=== PATIENT | female | born 1965 | race Caucasian/White ===

== ENCOUNTER 2016-09-25 21:15 | Inpatient (IN) | payer OTHER ==
--- NOTE | ~2016-09-25 | CR63 ---
[facility] A Service of [facility] & [facility] RADIOLOGY TEXT RESULTS PATIENT: SHERIDAN EISENBERG LOCATION: [facility] 569-01 : [birth year] UNIT #: [id number] AGE: [address]: Leonel Fuller MD SEX: F ORDER DR: [id number] [facility] [address] [facility] [place], [place] [address] [id number] I MR#: [id number] Acc #: [id number] NAME: SHERIDAN EISENBERG : 1965 SEX: F STUDY DATE/TIME: 09/29/2016 13:45 UNIT: [facility] ROOM: [facility] STUDY DESCRIPTION: CR Chest 2 View Attending Physician: Leonel Fuller M.D. Ordering Physician: Trevin Andrea M.D. Primary Care Physician: No Primary Care Physician MEDICAL IMAGING REPORT This report is preliminary unless electronic signature is present EXAM Chest, PA and lateral, 09/29. COMPARISON 09/28 FINDINGS PA and lateral views are obtained. Heart size is enlarged. Vascular pattern is normal. Right IJ line terminates in the SVC and transvenous pacemaker is unchanged on the lateral view, there is some atelectasis in the bases posteriorly. CONCLUSION 1. Postop changes of prior transvenous pacemaker placement. Stable cardiomegaly with atelectasis in the bases. Dictated by... Jason Maynard M.D. THIS IS AN ELECTRONICALLY VERIFIED REPORT Jason Maynard M.D. at 09/30/2016 9:17 AM ELEONORA/jesse TD: 09/29/2016 19:57 JOB #: [id number] MEDICAL IMAGING REPORT Page 1 of 1 COPY
--- NOTE | ~2016-09-25 | EKG ---
PATIENT: SHERIDAN EISENBERG UNIT #: [id number] Ventricular Rate: 80 BPM Atrial Rate: 69 BPM QRS Duration: 142 ms Q-T Interval: 522 ms QTC Calculation(Bezet): 602 ms Calculated R Polk: -72 degrees Calculated T Polk: 100 degrees Diagnosis Line: Electronic ventricular pacemaker Diagnosis Line: When compared with ECG of 25-SEP-2016 21:11, Diagnosis Line: (unconfirmed) Diagnosis Line: Premature ventricular complexes are no longer Diagnosis Line: Present Diagnosis Line: Vent. rate has decreased BY 13 BPM Diagnosis Line: Confirmed by DHEERAJ FRANCE MD ([id number]) on 09/27/2016 Diagnosis Line: 6:47:05 PM INTERPRETING MD: EDILMA FARIAS
--- NOTE | ~2016-09-25 | CT16 ---
[facility] A Service of [facility] & [facility] RADIOLOGY TEXT RESULTS PATIENT: SHERIDAN EISENBERG LOCATION: [address] : [birth year] UNIT #: [id number] AGE: [address]: Chuck Villanueva MD SEX: F ORDER DR: [id number] [facility] [address] [facility]. [place], [place] [address] [id number] I MR#: [id number] Acc #: [id number] NAME: SHERIDAN EISENBERG : 1965 SEX: F STUDY DATE/TIME: 09/25/2016 22:44 UNIT: [facility] ROOM: [facility] STUDY DESCRIPTION: CT Angio Chest for PE Attending Physician: Chuck Villanueva M.D. Ordering Physician: Izzy Crews M.D. Primary Care Physician: Primary Care Physician No MEDICAL IMAGING REPORT This report is preliminary unless electronic signature is present EXAM CT chest with contrast, pulmonary arteriography protocol, 09/25/2016 HISTORY 51-year-old female in the ED intubated after respiratory arrest. Shortness of air and abdomen pain today. TECHNIQUE CT examination of the Chest was performed with IV contrast using pulmonary arteriography protocol with multiplanar reconstructed images of the pulmonary arteries. This CT exam was performed with one or more of the following radiation dose reduction techniques: automatic exposure control, adjustment of mA and/or kV according to patient size, and iterative reconstruction. FINDINGS The examination is limited for the assessment of pulmonary embolism due to poor contrast opacification of medium and smaller pulmonary arteries within the mid and peripheral lung zones. No large pulmonary embolism is present within the main pulmonary arteries, and no PE is visible within large central pulmonary arteries. Normal-caliber thoracic aorta. Moderate cardiomegaly. No pericardial effusion. Lung images show likely mild interstitial edema in the perihilar regions and lower lobes, but the nondependent portions of both lungs are clear. There is atelectasis in the dependent posterior costophrenic angles, greater on the right, but there is no pericardial effusion. Endotracheal tube tip is just above the santino. NG tube in the stomach. Possible interruption of the left ventricular lead of the patient's biventricular cardiac pacer/AICD questioned on earlier radiographs is not clearly seen on this study. [facility] A Service of [facility] & [facility] RADIOLOGY TEXT RESULTS PATIENT: SHERIDAN EISENBERG LOCATION: [address] : [birth year] UNIT #: [id number] AGE: [address]: Chuck Villanueva MD SEX: F ORDER DR: IMPRESSION 1. No large central pulmonary embolism is visible. Medium and smaller pulmonary arteries are not assessed due to technical limitations noted above. 2. Probable mild interstitial edema in the lower lungs. Nondependent lungs clear. Bibasilar atelectasis. 3. Cardiomegaly. No pericardial effusion. Normal-caliber thoracic aorta. Dictated by... Marcus Gomes M.D. THIS IS AN ELECTRONICALLY VERIFIED REPORT Marcus Gomes M.D. at 09/26/2016 5:51 AM AUTUMN/kira TD: 09/26/2016 02:32 JOB #: [id number] MEDICAL IMAGING REPORT Page 1 of 1 COPY
--- NOTE | ~2016-09-25 | CR63 ---
[facility] A Service of [facility] RADIOLOGY TEXT RESULTS PATIENT: SHERIDAN EISENBERG LOCATION: [facility] 5612-21 : [birth year] UNIT #: [id number] AGE: [address]: Leonel Fuller MD SEX: F ORDER DR: [id number] [facility] [address] [facility]. [place], [place] [address] [id number] I MR#: [id number] Acc #: [id number] NAME: SHERIDAN EISENBERG : 1965 SEX: F STUDY DATE/TIME: 09/28/2016 8:02 UNIT: [facility] ROOM: [facility] STUDY DESCRIPTION: CR Chest 2 View Attending Physician: Leonel Fuller M.D. Ordering Physician: Trevin Andrea M.D. Primary Care Physician: No Primary Care Physician MEDICAL IMAGING REPORT This report is preliminary unless electronic signature is present EXAM Chest, 09/28/2016, 0802 hours. HISTORY 51-year-old female status post extubation. COMPARISON Portable chest, 09/27/2016. FINDINGS Two-view chest demonstrates cardiomegaly. Large body habitus results in somewhat restricted inspiration. Central line remains well positioned. Pacing leads well positioned. Improved aeration of the left lower lobe. Mild vascular congestion. Probable atelectasis left lung base with poor penetration of soft tissues over the left lower chest. IMPRESSION Interim extubation with improved aeration of the left lower lobe. Low lung volumes with mild vascular congestion and cardiomegaly. Dictated by... Salo Mccain M.D. THIS IS AN ELECTRONICALLY VERIFIED REPORT Salo Mccain M.D. at 09/28/2016 1:00 PM SARAH/sanchez TD: 09/28/2016 11:27 JOB #: [id number] MEDICAL IMAGING REPORT [facility] A Service of [facility] & [facility] RADIOLOGY TEXT RESULTS PATIENT: SHERIDAN EISENBERG LOCATION: [facility] 569 : [birth year] UNIT #: [id number] AGE: [address]: Leonel Fuller MD SEX: F ORDER DR: Page 1 of 1 COPY
--- NOTE | ~2016-09-25 | A ---
[facility] Nutrition Therapy DATE: 09/26/16 Patient: SHERIDAN Prince SUSHILA Physician: ESTRELLA Address: [address] [place] [address] Room/Bed: [address], Zip: [place] [address] Admit Date: 09/26/16 Date of : [birth year] Height: 5 4 Weight: 277 126 NUTRITIONAL ASSESSMENT: REASON: SEEING PT FOR HIGH BMI, NPO IN ICU DX: 51 Y.O. FEMALE IN ICU FOR ADBOMINAL PAIN, HEART FAILURE PMH: AFIB, CHF, CAD, COPD, AICD, ASCHEMIC CARDIO MYOPATHY, HYPERLIPIDEMIA, CKD Anthropometrics: 5'4", WT: 277 (126 KG), BMI 47 Labs: K+ 3.3, GLU 246, CA++ 8.1, ALB 2.9, AST 103, ALT 101 Meds: PROPOFOL @ 30.2 ML/HR, BMP, NACL, PROTONIX, LOPRESSOR, MAG SULFATE, ZOSYN, NOVOLOG, SYNTHROID (1X DAY, OGT), ZOFRAN I/O & Bowel function: 760/1350, LAST BM 09/25 Skin Integrity: REDNESS L. BREAST, BRUISE BUE/HANDS Estimated Nutrition Needs: 5153-0620 KCAL (11-14 KCAL/KG ABW) 109-136 G PRO (2-2.5 G/KG IBW) FLUIDS CONSISTANT WITH KCALS OR PER MD Assessment: CHART REVIEWED, EVENTS NOTED. PT WAS ADMITTED WITH ABDOMINAL PAIN AT HOME AND POSSIBLE HEART FAILURE REPORTED BY RN. PT HAS EXTENSIVE PMH RELATING TO HEART FAILURE. PT IS SEDATED CURRENTLY ON THE VENTILATOR. PROPOFOL IS PROVIDING AN ADDITIONAL 797 KCALS FROM LIPIDS AT THIS TIME. PER MD NOTE IN CHART, WEAN TO BE ATTEMPTED TOMORROW. PLEASE SEE RECOMMENDATIONS FOR ENTERAL NUTRITION RECOMMENDATIONS. RD WILL CONTINUE TO FOLLOW. Dx: 1) INADEQUATE ORAL INTAKE R/T CLINICAL CONDITION, VENTILATOR DEPENDANCE AEB NPO STATUS. 2) MORBID OBESITY R/T POSSIBLY LIFESTYLE AEB BMI OF 47. Intervention: 1. ENTERAL NUTRITION IF PT NOT EXTUBATED Monitoring, Evaluation and Goals: 1. ENTERAL NUTRITION; INITIATE IF PT NOT EXTUBATED, PROVIDE >80% GOAL VOLUME X 24 HRS 2. WEIGHT; PROMOTE GRADUAL WEIGHT LOSS TOWARD A HEALTHY BMI AND PREVENT ANY ADDITIONAL WEIGHT GAIN 3. LABS; GLU; WNL [facility] Nutrition Therapy DATE: 09/26/16 Patient: SHERIDAN Prince ELGIN Physician: ESTRELLA Address: [address] [place] [address] Room/Bed: [address], Zip: [place] [address] Admit Date: 09/26/16 Date of : 67 Height: 5 4 Weight: 277 126 Recommendations: 1. IF ENTERAL ACCESS IS OBTAINED, INITIATE ENTERAL NUTRITION SUPPORT WITH VITAL HIGH PROTEIN @ 20 ML/HR X 22 HRS + 30 ML PROSTAT BID. INCREASE BY 10 ML Q 6 HRS TO GOAL OF 40 ML/HR X 22 HOURS + 30 ML PROSTAT BID (PT ON SYNTHROID, HOLD TF'S ONE HOUR BEFORE AND ONE HOUR AFTER ADMINISTRATION) -THIS WILL PROVIDE 1877 KCAL, 107 G PRO, 739 ML FREE H20 -ADD FREE H20 FLUSHES PER MD ORDERS 2. WHEN PROPOFOL IS D/C'D, DISCONTINUE PROSTAT AND INCREASE VITAL HP BY 10 ML Q 6 HOURS TO GOAL OF 65 ML/HR X 22 HOURS (PT ON SYNTHROID, HOLD TF'S ONE HOUR BEFORE AND ONE HOUR AFTER ADMINISTRATION) -THIS WILL PROVIDE 1430 KCAL, 125 G PRO, 1201 FREE H20 -ADD FREE H20 FLUSHES PER MD ORDERS 3. IF THE PT IS EXTUBATED AND DEEMED SAFE FOR PO INTAKE, ADVANCE TO A HEALTHY HEART DIET TOLERATED. 3. CHECK HGBA1C D/T ELEVATED BLOOD GLUCOSE LEVELS. RD WILL F/U PER PROTOCOL PT IS MODERATE NUTRITIONAL RISK. Respectfully, SETH MCMANUS, SENIOR SAFETY SUPPORT MANAGER TORIBIO DAWN, RD, LD Food and Nutritional Services [facility] cc: client file cc: client file
--- NOTE | ~2016-09-25 | CR72 ---
[facility] A Service of [facility] RADIOLOGY TEXT RESULTS PATIENT: SHERIDAN EISENBERG LOCATION: [facility] 569-01 : [birth year] UNIT #: [id number] AGE: [address]: Leonel Fuller MD SEX: F ORDER DR: [id number] [facility] [address] [facility]. [place], [place] [address] [id number] I MR#: [id number] Acc #: [id number] NAME: SHERIDAN EISENBERG : 1965 SEX: F STUDY DATE/TIME: 09/27/2016 6:16 UNIT: [facility] ROOM: [facility] STUDY DESCRIPTION: CR Chest Single View Portable Attending Physician: Leonel Fuller M.D. Ordering Physician: Joel Mead M.D. Primary Care Physician: Primary Care Physician No MEDICAL IMAGING REPORT This report is preliminary unless electronic signature is present EXAM Portable chest 09/27/2016 COMPARISON 09/26/2016. HISTORY ET tube placement. Respiratory failure. Admitted 2 days ago. FINDINGS An AP view is obtained. The patient is intubated with ET tube above the santino. Nasoenteric tube is in the stomach. Right IJ line terminates in the SVC. There is a transvenous biventricular pacemaker in place. Heart size is normal. There is atelectasis at the left base. The vascular markings are normal. CONCLUSION 1. ET tube in satisfactory position. 2. Status post biventricular pacemaker placement. 3. Atelectasis at the left base. Dictated by... Jason Maynard M.D. THIS IS AN ELECTRONICALLY VERIFIED REPORT Jason Maynard M.D. at 09/30/2016 9:17 AM ELEONORA/silva TD: 09/27/2016 07:25 JOB #: [id number] MEDICAL IMAGING REPORT [facility] A Service [facility] RADIOLOGY TEXT RESULTS PATIENT: SHERIDAN EISENBERG LOCATION: [facility] 569-01 : [birth year] UNIT #: [id number] AGE: [address]: Leonel Fuller MD SEX: F ORDER DR: Page 1 of 1 COPY
--- NOTE | ~2016-09-25 | CO ---
Unit #: [id number] #: [id number] Patient: SHERIDAN KHAN [id number] [address] [place], [place] [address] [id number] I MR#: [id number] NAME: SHERIDAN KHAN ROOM: [facility] Age: 51 Sex: F Admission Date: 09/26/2016 : 1965 Attending Physician: Leonel Fuller M.D. Primary Care Physician: No Primary Care Physician Consultation Date: 09/26/2016 CONSULTATION REPORT REASON FOR CONSULTATION Respiratory failure, sepsis. HISTORY OF PRESENT ILLNESS A 51-year-old female with multiple medical problems. She has had a several week history of epigastric and chest discomfort after she eats. She has a lot of chronic problems including congestive heart failure, coronary artery disease, COPD with ongoing active tobacco use, chronic constipation likely secondary to pain medications, obstructive sleep apnea intolerant to CPAP. The family's history is somewhat difficult to decipher as they seem to concentrate on all these multiple medical problems. She presented to the emergency room in extremist, required intubation. There was a question of sepsis and she was placed on multiple antibiotics. Multiple imaging studies have been performed which includes a CT scan of the abdomen which was fairly unremarkable. A CT scan of the chest which revealed no PE, no definite pneumonia. She now is in the intensive care unit, hemodynamically stable on the ventilator, sedated with propofol. Obviously, she cannot add to the history. PAST MEDICAL HISTORY Past medical history once again is extensive and is remarkable for: 1. COPD. 2. Ongoing active tobacco use. 3. Obstructive sleep apnea, intolerant to CPAP. 4. Congestive heart failure, last EF that I can see documented is 35%, although I believe today's echo shows worsening of her LV function. 5. Severe mitral regurgitation. 6. Atrial fibrillation. 7. Pacemaker implantation. 8. The family states that she "only has one kidney." Details are unclear. 9. Family also tells me she has cirrhosis, possibly secondary to fatty liver. 10. History of coronary artery disease with stents. 11. History of chronic pain, on narcotics with chronic constipation. 12. History of anemia with diverticulosis and AVMs of the colon. 13. History of diabetes. 14. History of hyperlipidemia. MEDICATIONS Medications at home according to a med/rec sheet: 1. Metoprolol. 2. Shawn aspirin. 3. Zantac. Unit #: [id number] #: [id number] Patient: SHERIDAN KHAN 4. Bumex. 5. Combivent inhaler. 6. Synthroid. 7. Lactulose. 8. Oxycodone 30 mg three times a day. 9. Celexa. 10. Desyrel. ALLERGIES Sulfa, morphine (unknown reactions), ibuprofen. SOCIAL HISTORY She rarely drinks. She continues to smoke. She is intolerant to CPAP. FAMILY HISTORY No definite familial lung disease. REVIEW OF SYSTEMS Unobtainable. PHYSICAL EXAMINATION GENERAL: A 51-year-old obese female, orally intubated. VITAL SIGNS: Afebrile. Pulse 80, respiratory rate 18, blood pressure 117/70. Height 5 foot 4 inches, weight 277, BMI is 49. HEENT: Pupils are equal, round, and reactive to light. Sclerae anicteric. Head atraumatic. NECK: Supple. No supraclavicular or cervical adenopathy appreciated. CHEST: Short expiratory phase. No wheeze, stridor, consolidation. CARDIAC: Examination reveals a regular rhythm, possible soft murmur. No gallop. ABDOMEN: Obese, soft, nontender. No hepatomegaly or rebound. EXTREMITIES: Reveal no clubbing, cyanosis. There is trace to 1+ edema. No calf tenderness. SKIN: She has some chronic skin changes lower extremities. Delayed capillary blush. NEUROLOGIC: She is sedated on propofol but she will move about all fours. According to the nurse, she has increasing agitation to some degree. DIAGNOSTIC STUDIES LABORATORY: Arterial blood gas: Initially pH is 7.11, pCO2 of 68, pO2 of 400. Repeat today: A pH of 7.39, pCO2 of 47, pO2 of 127 on assist control of 18, tidal volume of 500, 60%, 5 of PEEP. She apparently diuresed well in the emergency room. BUN 16, creatinine 1, potassium 3.3 and is being replaced. Transaminases: Elevated AST 103, ALT 101, alkaline phosphatase 112. BNP was 1154, now 588. Lactic acid was 4.3, now 3.1. INR normal, apparently she is on Xarelto. Initial cardiac enzymes negative. White blood cell count was 30, now 21. Hemoglobin 14.4, platelet count 119,000. Tox screen positive for benzodiazepines and opiates. I do not seen benzodiazepines on her med rec sheet. Urinalysis: Glucosuria, proteinuria, 3+ blood, innumerable white cells, 2+ bacteria. Blood cultures performed and are pending. Urine is pending. IMAGING: Chest x-ray yesterday: ET tube in adequate position, somewhat on the low side. CT scan secondary to pulmonary lobule: No definite pneumonia, some bibasilar atelectasis. No PE. Unit #: [id number] #: [id number] Patient: SHERIDAN KHAN CT abdomen: Per report, no acute findings. CARDIOVASCULAR: EKG is paced. IMPRESSION 1. Respiratory failure, secondary to congestive heart failure. 2. Coronary artery disease, rule out myocardial infarction. 3. Possible sepsis, secondary to urinary source. 4. Chronic obstructive pulmonary disease with ongoing active tobacco use. No active bronchospasm. 5. Obstructive sleep apnea, currently intolerant and not treated. 6. History of cirrhosis, per family history suspect secondary to fatty liver. 7. Paroxysmal atrial fibrillation on Eliquis. 8. History of anemia and gastrointestinal bleeding secondary to arteriovenous malformations. 9. Coronary artery disease. 10. Chronic pain with constipation. 11. Elevated liver function tests. 12. Some question of solitary kidney, currently with normal renal function. PLAN 1. Mechanical ventilatory support. 2. Diuresis. 3. Rule out myocardial infarction and cardiology is to see. 4. Antibiotics directed toward a urinary source, followup cultures, adjust as needed. 5. I will add nebulized bronchodilators but at this point, no steroid therapy is needed. 6. Will attempt spontaneous breathing trial in the morning. If fails, will start enteral feeds. 7. Certainly, no smoking is of great benefit. 8. I would consider re-evaluation for sleep apnea if the patient survives this illness. Severity of disease discussed with family. Thank you very much for allowing me to participate in the care of Ms. Khan. Dictated by... Joel Mead M.D. AHMET/jing TD: 09/26/2016 11:50 JOB #: [id number] Unit #: [id number] #: [id number] Patient: SHERIDAN KHAN CONSULTATION REPORT Page 1 of 1 X Joel Mead MD CONSULTATION REPORT
--- NOTE | ~2016-09-25 | CR72 ---
[facility] A Service of [facility] RADIOLOGY TEXT RESULTS PATIENT: SHERIDAN EISENBERG LOCATION: [facility] 569-01 : [birth year] UNIT #: [id number] AGE: [address]: Leonel Fuller MD SEX: F ORDER DR: [id number] [facility] [address] [facility]. [place], [place] [address] [id number] I MR#: [id number] Acc #: [id number] NAME: SHERIDAN EISENBERG : 1965 SEX: F STUDY DATE/TIME: 09/25/2016 21:41 [facility] STUDY DESCRIPTION: CR Chest Single View Portable Attending Physician: Chuck Villanueva M.D. Ordering Physician: Izzy Crews M.D. Primary Care Physician: No Primary Care Physician MEDICAL IMAGING REPORT This report is preliminary unless electronic signature is present EXAM Portable AP view of the chest. COMPARISON March 30, 2015, and January 08, 2015. INDICATIONS 51-year-old female with respiratory arrest today post endotracheal intubation. FINDINGS Endotracheal tube appears slightly low-riding located approximately 2.3 cm above the santino. Multilead left chest pacemaker/defibrillator device appears stable. No evidence of pneumothorax. Cardiomegaly again noted. There are increased interstitial opacities throughout the lungs perhaps reflecting interstitial edema. Correlation to exclude signs of pneumonia recommended. Hazy attenuation over the left lung base is favored to be due to prominent breast and cardiac shadows. There is focal kinking of one of the cardiac leads which was seen in December of 2014 but not appears more prominent. Correlation with device function is recommended. IMPRESSION 1. Questionable focal kinking of a single lead in this patient with multilead pacemaker/defibrillator device. While this was seen in December of 2014, it now appears more prominent and correlation with device function is recommended. 2. Endotracheal tube is located approximately 2.3 cm above the santino. One could consider retraction by approximately a centimeter as the tube tip is just above the origin of the right mainstem bronchus. 3. There is cardiomegaly with increased interstitial opacities throughout the lungs favoring mild pulmonary interstitial edema. Correlation to exclude signs of pneumonia are recommended. [facility] A Service of [facility] RADIOLOGY TEXT RESULTS PATIENT: SHERIDAN EISENBERG LOCATION: [facility] 569-01 : [birth year] UNIT #: [id number] AGE: [address]: Leonel Fuller MD SEX: F ORDER DR: Dictated by... Dov Benoit M.D. THIS IS AN ELECTRONICALLY VERIFIED REPORT Dov Benoit M.D. at 10/01/2016 7:28 AM DOMINIQUE/jesse TD: 09/26/2016 01:55 JOB #: [id number] MEDICAL IMAGING REPORT Page 1 of 1 COPY
--- NOTE | ~2016-09-25 | DS ---
Unit #: [id number] #: [id number] Patient: SHERIDAN EISENBERG [id number] [address] [place], [place] [address] [id number] I MR#: [id number] NAME: SHERIDAN EISENBERG ROOM: 569 Age: 51 Sex: F Admission Date: 09/25/2016 : 1965 Discharge Date: 09/29/2016 Attending Physician: Leonel Fuller M.D. Primary Care Physician: No Primary Care Physician DISCHARGE SUMMARY REASON FOR ADMISSION Acute hypoxic respiratory failure. HISTORY OF PRESENT ILLNESS/HOSPITAL COURSE Patient is a 51-year-old female. Please refer to H and P for complete details on initial part of hospital stay. She was admitted secondary to above. She was subsequently intubated and placed on ventilator and placed in the ICU. Consultation was placed to Dr. Andrea and marlon in regards to product design engineer as well as from a respiratory standpoint. They continued to follow patient through her hospital course. She was gradually extubated and placed on BiPAP support and then transitioned to O2 via nasal cannula. She was placed on telemetry floor and she has otherwise done well from a respiratory standpoint. She was appropriately treated with aerosol, Solu-Medrol, as well as IV antibiotics. She does have a prior history of systolic heart failure. Consultation was placed to Dr. Ortega and marlon. They also followed patient throughout. She did receive diuresis and blood pressure management as well. Her ejection fraction, as noted, was approximately 20% to 25%. At this point in time, patient is ambulatory. She appears clinically stable for discharge. Cardiology services have recommended Entresto at time of discharge. Overall, patient's long-term prognosis is guarded. Patient did undergo 2D echocardiogram, as mentioned above, this hospital admission, which did reveal moderate aortic stenosis, moderate aortic regurgitation, and moderately enlarged right atrial size, moderately dilated left atrium, and ejection fraction, as noted, 20% to 25%. Patient will be discharged home after O2 assessment for final evaluation. She will follow up with PCP in approximately 7-10 days. She complained off and on of some back pain and/or discomfort, but it was recommended that she follow up as an outpatient for ongoing care. FINAL DISCHARGE DIAGNOSES 1. Acute hypoxic respiratory failure, multifactorial in origin secondary to chronic obstructive pulmonary disease exacerbation as well as systolic heart failure exacerbation. 2. Acute on chronic systolic heart failure with estimated ejection fraction 20% to 25%. Unit #: [id number] #: [id number] Patient: SHERIDAN EISENBERG 3. Coronary artery disease with prior history of stent placement in 2009. 4. Cardiac arrhythmia, status post A-V node ablation. 5. Status post pacemaker placement in past. 6. Chronic obstructive pulmonary disease, likely end stage with O2 dependence. 7. Chronic kidney disease with prior history of nephrectomy. Discharge creatinine 1.3 and GFR 48. 8. Diabetes with hemoglobin A1c 10.5%, poorly controlled. 9. Hypertension. 10. Severe morbid obesity. 11. Hypothyroidism. 12. Atrial fibrillation. FINAL DISCHARGE MEDICATIONS 1. Combivent Respimat 1 inhalation q.6 hours. 2. Lactulose 10 mg p.o. every day p.r.n. 3. Celexa 20 mg p.o. q.h.s. 4. Trazodone 50 mg p.o. q.h.s. 5. Lopressor 25 mg p.o. b.i.d. 6. Bumex 2 mg p.o. b.i.d. 7. Hydralazine 75 mg p.o. b.i.d. 8. Zestril 10 mg p.o. every day. 9. Zantac 150 mg p.o. b.i.d. 10. Aspirin 325 mg p.o. every day. 11. Oxycodone 30 mg p.o. b.i.d. p.r.n. Note new frequency. 12. Plavix 75 mg p.o. every day. 13. Aldactone 25 mg p.o. q.a.m. 14. Synthroid 50 mcg p.o. every day. 15. Ceftin 500 mg p.o. b.i.d. x5 days. DISCHARGE CONDITION Stable. DISCHARGE DISPOSITION Home after appropriate O2/oxygen assessment. LONG-TERM PROGNOSIS Guarded. CHANCE FOR READMISSION Significantly high. Dictated by... Pepe Willis TD: 09/29/2016 10:57 JOB #: [id number] Unit #: [id number] #: [id number] Patient: SHERIDAN EISENBERG R DISCHARGE SUMMARY Page 1 of 1 X Leonel Fuller MD X DISCHARGE SUMMARY
--- NOTE | ~2016-09-25 | CT2 ---
[facility] A Service of [facility] RADIOLOGY TEXT RESULTS PATIENT: SHERIDAN EISENBERG LOCATION: [address] : [birth year] UNIT #: [id number] AGE: [address]: Chuck Villanueva MD SEX: F ORDER DR: [id number] [facility] [address] [facility]. [place], [place] [address] [id number] I MR#: [id number] Acc #: [id number] NAME: SHERIDAN EISENBERG : 1965 SEX: F STUDY DATE/TIME: 09/25/2016 22:44 UNIT: [facility] ROOM: [facility] STUDY DESCRIPTION: CT Abd and Pelv W Cont Attending Physician: Chuck Villanueva M.D. Ordering Physician: Izzy Crews M.D. Primary Care Physician: Primary Care Physician No MEDICAL IMAGING REPORT This report is preliminary unless electronic signature is present EXAM CT abdomen and pelvis with contrast, 09/25/2016 HISTORY 51-year-old female in the ED intubated after respiratory arrest. She complains of shortness of air and abdomen pain beginning today. TECHNIQUE CT examination of the abdomen and pelvis with IV contrast. GI contrast material was not administered. This CT exam was performed with one or more of the following radiation dose reduction techniques: automatic exposure control, adjustment of mA and/or kV according to patient size, and iterative reconstruction. FINDINGS ABDOMEN FINDINGS: Mild hepatomegaly and diffuse hepatic steatosis. The liver, pancreas and spleen are otherwise negative. Nondistended gallbladder. No bile duct dilatation. NG tube within a decompressed stomach. Marked chronic left renal atrophy. The right kidney is normal in appearance with no visible urinary obstruction. 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 Small bowel and colon are normal in caliber and appearance, as imaged. The appendix is normal. Normal-caliber abdominal aorta. PELVIS FINDINGS: Linder catheter within decompressed bladder. Uterus, adnexal regions and rectum are within normal limits. IMPRESSION [facility] A Service of [facility] RADIOLOGY TEXT RESULTS PATIENT: SHERIDAN EISENBERG [facility] [address] [id number] [birth year] UNIT #: [id number] AGE: [address]: Chuck Villanueva MD SEX: F ORDER DR: 1. No acute abnormality is identified within the abdomen or pelvis. 2. Mild hepatomegaly and diffuse hepatic steatosis. 3. NG tube within decompressed stomach. Normal-caliber small bowel and colon. Normal appendix. 4. Marked chronic left renal atrophy with mild compensatory hypertrophy of otherwise unremarkable right kidney. 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 Dictated by... Marcus Gomes M.D. THIS IS AN ELECTRONICALLY VERIFIED REPORT Marcus Gomes M.D. at 09/26/2016 5:51 AM AUTUMN/kira TD: 09/26/2016 02:35 JOB #: [id number] MEDICAL IMAGING REPORT Page 1 of 1 COPY
--- NOTE | ~2016-09-25 | CO ---
Unit #: [id number] #: [id number] Patient: SHERIDAN EISENBERG [id number] [facility]. [address] [place], [place] [address] [id number] I MR#: [id number] NAME: SHERIDAN EISENBERG ROOM: 569 Age: 51 Sex: F Admission Date: 09/25/2016 : 1965 Attending Physician: Leonel Fuller M.D. Primary Care Physician: Primary Care Physician No Consultation Date: 09/26/2016 CONSULTATION REPORT REASON FOR CONSULTATION Abnormal chest x-ray with possible pacemaker lead fracture versus kink. HISTORY OF PRESENT ILLNESS This is a 51-year-old white female, known to our group, with a past medical history of paroxysmal atrial fibrillation status post AV jose antonio ablation, chronic systolic congestive heart failure status post AICD/pacemaker in 11/2014, coronary artery disease status post PCI and stent in the LAD in 2009, COPD, obstructive sleep apnea, chronic kidney disease, solitary kidney, hyperlipidemia, diabetes mellitus type 2, obesity, and hypothyroidism. The patient follows in the office with Dr. Ortega, and was seen in 2015 for followup. She has had no recent appointments. She presented to the hospital with complaints of abdominal pain and shortness of breath. EMS was dispatched and she was reportedly cyanotic and hypoxic. No CPR was completed. She was brought to the hospital and was sedated, paralyzed, and subsequently intubated. Initial lactic acid was elevated at 4.3 and then 3.1. White blood cell count was high at 30.1. LFTs were elevated. Initial cardiac enzymes were negative. Chest x-ray revealed questionable kinking of a single pacemaker lead. This was noted previously in 12/2014, but is more prominent on this study. CTA of the chest revealed no large pulmonary embolus, but this study was technically difficult. CT of the abdomen revealed mild hepatomegaly and left renal atrophy. EKG revealed a paced rhythm with what appears to be underlying atrial flutter. She was admitted for respiratory failure and possible sepsis. Cardiology was consulted due to abnormal chest x-ray. The patient is currently on a ventilator and information is difficult to obtain. No family at the bedside, but her daughter is on the way to the hospital. PAST MEDICAL HISTORY 1. A 2D echocardiogram in 08/2014 revealed an ejection fraction of 35% to 40%. Mild tricuspid regurgitation. Jzvmdqja-qg-hgffhv mitral regurgitation. No aortic stenosis. AV sclerosis. Trace pulmonic regurgitation. No pericardial effusion. 2. Atrial fibrillation/atrial flutter status post AV jose antonio ablation, previously on Xarelto in 2014. 3. Chronic systolic congestive heart failure with history of AICD in 11/2014. 4. Coronary artery disease status post PCI and stent in the LAD in 2009. Details of full cath report are unavailable. 5. History of elevated LFTs secondary to hepatic congestion. 6. History of acute kidney injury. 7. History of anemia with GI bleed with small duodenal AVMs in 09/2014. Unit #: [id number] #: [id number] Patient: SHERIDAN EISENBERG 8. COPD. 9. Obstructive sleep apnea. 10. Hypertension. 11. Hyperlipidemia. 12. Solitary kidney. 13. History of PFO, reportedly in 2009. 14. Nonsustained ventricular tachycardia. 15. Obesity. 16. Diabetes mellitus, type 2. 17. Hypothyroidism. 18. Medical noncompliance. 19. Anxiety/depression. 20. Chronic pain. 21. History of tobacco abuse. PAST SURGICAL HISTORY 1. AV jose antonio ablation. 2. AICD in 11/2014. 3. PCI and stent in LAD in 2009. 4. Tubal ligation. 5. T and A. 6. EGD and colonoscopy with small AVM status post hemoclip. 7. Tubes in ears. HOME MEDICATIONS List of home medications includes; 1. Metoprolol tartrate 100 mg p.o. b.i.d. 2. Aspirin 325 mg p.o. daily. 3. Zantac 150 mg p.o. b.i.d. 4. Bumex 2 mg p.o. daily. 5. Combivent 4 g inhalation b.i.d. 6. Synthroid 0.05 mg p.o. daily. 7. Lactulose 10 g p.o. daily p.r.n. 8. Oxycodone 30 mg p.o. 3 times daily. 9. Celexa 20 mg p.o. at bedtime. 10. Trazodone 50 mg p.o. at bedtime. ALLERGIES Sulfa, morphine, and ibuprofen. SOCIAL HISTORY The patient has a history of tobacco abuse. It is unclear if she is currently smoking. There are no reports of alcohol or illicit drug use. FAMILY HISTORY Significant for heart disease. Her mother at age 48 from congestive heart failure. REVIEW OF SYSTEMS Unable to obtain. PHYSICAL EXAMINATION VITAL SIGNS: Temperature 97.3, pulse 80, blood pressure 117/70. CONSTITUTIONAL: This is a 51-year-old white female, who is sedated on a ventilator. SKIN: Warm and dry. NECK: Supple. No jugular vein distention. No hepatojugular reflex. Normal carotid upstrokes. No carotid bruits auscultated. Unit #: [id number] #: [id number] Patient: SHERIDAN EISENBERG HEART: S1 and S2. Irregular. No murmurs, rubs, or gallops. LUNGS: Bilateral breath sounds diminished in the bases. Respirations are even and nonlabored. No rales, rhonchi, or wheezes. ABDOMEN: Obese, soft, nontender, and nondistended. Positive bowel sounds auscultated x4 quadrants. No ascites noted. EXTREMITIES: Lower extremities have trace pretibial pitting edema. DP and PT pulses are 2+. Capillary refill is less than 2 seconds. DIAGNOSIS STUDIES LABORATORY RESULTS: White blood cell count 21.1, hemoglobin 14.4, hematocrit 45.2, and platelets 119. Sodium 136, potassium 3.3, chloride 107, CO2 of 22, BUN 16, creatinine 1.0, and glucose 240. Magnesium 2.3. Total protein 5.6, albumin 2.9, AST 103, ALT 101, and alkaline phosphatase 112. BNP 588 and troponin 0.05. Lactic acid 4.3 and 3.1. TSH 1.04. INR 1.0. IMAGING STUDIES: 1. Chest x-ray reveals questionable kinking of a single pacemaker lead, not new from study in 12/2014, but more prominent. ET tube at 2.3 cm above the santino. Cardiomegaly with an increased interstitial edema. Rule out pneumonia. 2. CT of the chest reveals no large pulmonary embolus. Technically difficult study. Mild interstitial edema. 3. CT of the abdomen reveals mild hepatomegaly and left renal atrophy. 4. X-ray of the abdomen reveals questionable kink versus fracture of one of the pacemaker leads. IMPRESSION 1. Acute hypoxic respiratory failure. 2. Possible pneumonia. 3. Rule out sepsis. 4. Acute on chronic systolic congestive heart failure with a left ventricular ejection fraction of 35% to 40% in 08/2014. 5. Coronary artery disease with history of percutaneous coronary intervention and stent in the left anterior descending in 2009. 6. History of automatic implantable cardioverter-defibrillator in 12/2014, she has questionable kink versus a fracture of lead. 7. Chronic obstructive pulmonary disease. 8. Obstructive sleep apnea. 9. Obesity. 10. Hyperlipidemia. 11. Diabetes mellitus, type 2. 12. Recurrent atrial flutter, not currently on anticoagulation. 13. History of atrioventricular jose antonio ablation. 14. Dkmmbqxi-pv-ippwae mitral regurgitation and mild tricuspid regurgitation in 08/2014. 15. 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 16. History of tobacco abuse. PLAN 1. The patient presented to hospital with abdominal pain and was emergently intubated and transferred to the intensive care unit. 2. Cardiology was consulted due to abnormal chest x-ray, which revealed a kink or possible fracture of the pacemaker lead. 3. We will interrogate the pacemaker and check a 2D echocardiogram. 4. The patient is sedated on a ventilator and it is unclear if she has had chest pain. We will trend cardiac enzymes and EKG. Unit #: [id number] #: [id number] Patient: SHERIDAN EISENBERG 5. We will continue metoprolol with parameters. 6. We will initiate potassium protocol. 7. We will repeat the CBC and CMP. We will also check a TSH and fasting lipid profile. 8. The patient has volume overload on exam and has been started on IV Bumex. 9. She would benefit from weight loss and tobacco cessation. Dictated by... Mirna De Leon APRN for Pepe Castillo TD: 09/27/2016 13:19 JOB #: [id number] CONSULTATION REPORT Page 1 of 1 X X CONSULTATION REPORT
--- NOTE | ~2016-09-25 | HP ---
Unit #: [id number] #: [id number] Patient: SHERIDAN EISENBERG [id number] [address] [place], [place] [address] [id number] I MR#: [id number] NAME: SHERIDAN EISENBERG ROOM: [facility] Age: 51 Sex: F Admission Date: 09/26/2016 : 1965 Attending Physician: Chuck Villanueva M.D. Primary Care Physician: No Primary Care Physician HISTORY AND PHYSICAL CHIEF COMPLAINT Abdominal pain, shortness of breath. DISCUSSION This is a 51-year-old female with past history of coronary artery disease with previous stent, history of CHF with ejection fraction 35 to 40%, moderate to severe TR, chronic AFib status post ablation, permanent pacemaker, AICD, chronic pain, history of morbid obesity, hypertension, hypothyroid, anxiety, depression, dyslipidemia, COPD, obstructive sleep apnea, did not tolerate CPAP, nonsustained V-tach. She was brought to the emergency room by EMS with chief complaint of having abdominal pain, shortness of breath, dyspnea. On arrival, she was found to have elevated blood pressure, 211/97, and, eventually in the ER, she underwent respiratory failure and being intubated and on the vent. PAST MEDICAL HISTORY 1. History of AFib status post AV node ablation and permanent pacemaker/AICD. 2. History of ischemic cardiomyopathy status post echo on 08/24/2014 revealing ejection fraction 35 to 40%, moderate to severe MR, mild TR. 3. History of coronary artery disease with previous stent and LAD in 2009. 4. Hypertension. 5. Hyperlipidemia. 6. Morbid obesity. 7. Chronic pain on Percocet. 8. History of chronic kidney disease. 9. Obstructive sleep apnea for which the patient could not tolerate BiPAP, CPAP. 10. COPD with ongoing tobacco abuse. 11. 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 12. History of elevated LFTs secondary to vascular congestion from CHF. 13. History of anxiety, depression. 14. Hypothyroid. 15. History of patent foramen ovale in 2009. 16. Chronic kidney disease stage 3. 17. History of nonsustained V-tach in the past. PAST SURGICAL HISTORY 1. History of cardiac stent and cath. 2. Tubal ligation. 3. Tonsillectomy. Unit #: [id number] #: [id number] Patient: SHERIDAN EISENBERG 4. Tubes in the ears. 5. History of solitary congenital kidney. SOCIAL HISTORY The patient lives with her fiance and teenage daughter. She smokes one and a half packs daily. She still continues to smoke. She denies alcohol. As per family, she does not drink alcohol. No other illicit drug use. FAMILY HISTORY Coronary artery in the family. Mother at age 48 from CHF. ALLERGIES Sulfa, ibuprofen. MEDICATION FROM HOME 1. Metoprolol 25 mg twice daily. 2. Aspirin 325 mg daily. 3. Zantac 150 mg twice daily. 4. Bumex 2 mg daily. 5. Combivent via nebulizer twice a day. 6. Synthroid 50 mcg daily. 7. Lactulose 10 g daily. 8. Oxycodone 30 mg three times daily. 9. Celexa 20 mg daily. 10. Desyrel 50 mg at bedtime. REVIEW OF SYSTEMS Unobtainable from the patient. PHYSICAL EXAMINATION GENERAL APPEARANCE: A middle-aged female lying in the bed, currently on the vent. CURRENT VITAL SIGNS: Temperature 99.8. Blood pressure initially was 211/97. Repeat one now 178/122. Currently, she is on the vent, intubated. HEENT: Pupils equal, reactive to light and accommodation. Head is normocephalic, atraumatic. NECK: Supple. No JVD. LUNGS: Decreased air entry bilaterally. HEART: S1, S2. Faint systolic murmur. ABDOMEN: Obese, soft, nontender. EXTREMITIES: Inspection normal. No cyanosis. No clubbing. No edema. NEUROLOGIC: Unable to do neuro exam at this time. She is on the vent. DIAGNOSTIC STUDIES LABORATORY: Troponin less than 0.05. Lactic acid level is 4.3. CBC: White count 30, hemoglobin 60, hematocrit 452, platelet 161. BNP 1,154. Sodium 137, potassium 3.8, chloride 103, glucose 272, BUN 16, creatinine 1.1, magnesium level 2.3. Alcohol level less than 5. INR is one. Troponin less than 0.05. IMAGING: Chest x-ray shows mild interstitial pulmonary edema. ASSESSMENT AND PLAN 1. Acute respiratory failure. Currently, she is on the vent. 2. Leukocytosis. Empirically, we have started the patient on IV Zosyn and vancomycin. 3. Possible sepsis with elevated lactic acid level. 4. Abdominal pain, initial complaint in the ER. CT scan of abdomen is Unit #: [id number] #: [id number] Patient: SHERIDAN EISENBERG pending at time of dictation. Also, PE protocol CT is pending. 5. Acute exacerbation of CHF with history of ejection fraction 35 to 40% in the past with moderate to severe TR. We will start the patient on IV Bumex, ask Cardiology to evaluate. 6. History of chronic AFib status post AV node ablation and AICD placed, permanent pacemaker, not on anticoagulation secondary to history of GI bleed in the past. 7. History of (1) . Dictated by Pepe Mcbride TD: 09/26/2016 06:03 JOB #: [id number] HISTORY AND PHYSICAL Page 1 of 1 X X HISTORY AND PHYSICAL
--- NOTE | ~2016-09-25 | CR72 ---
[facility] A Service of [facility] RADIOLOGY TEXT RESULTS PATIENT: SHERIDAN EISENBERG LOCATION: [address] : [birth year] UNIT #: [id number] AGE: [address]: Leonel Fuller MD SEX: F ORDER DR: [id number] [facility] [address] [facility]. [place], [place] [address] [id number] I MR#: [id number] Acc #: [id number] NAME: SHERIDAN EISENBERG : 1965 SEX: F STUDY DATE/TIME: 09/26/2016 0957 UNIT: [facility] ROOM: [facility] STUDY DESCRIPTION: CR Chest Single View Portable Attending Physician: Leonel Fuller M.D. Ordering Physician: Joel Mead M.D. Primary Care Physician: No Primary Care Physician MEDICAL IMAGING REPORT This report is preliminary unless electronic signature is present EXAM Chest, portable, 09/26/2016, 0957 hours. CLINICAL HISTORY Respiratory arrest, endotracheal tube positioning. COMPARISON CT chest 09/25/2016 and chest film 09/25/2016. FINDINGS Portable upright chest demonstrates a new endotracheal tube with tip 2 cm above the santino. There is an enteric tube with tip in stomach. Pacer device unchanged. Lung volumes are low with stable cardiomegaly and mediastinal widening. There is bilateral interstitial change without definite effusion or pneumothorax. IMPRESSION 1. New endotracheal tube tip is 2 cm above the santino. There is an enteric tube with tip in the proximal stomach. Pacer device unchanged. 2. Stable cardiomegaly and mediastinal widening. 3. Mild bilateral interstitial change. No definite effusion or pneumothorax. Dictated by... Cheryl Jennings M.D. THIS IS AN ELECTRONICALLY VERIFIED REPORT Cheryl Jennings M.D. at 09/26/2016 2:27 PM LONAM/sanchez [facility] A Service of [facility] RADIOLOGY TEXT RESULTS PATIENT: SHERIDAN EISENBERG LOCATION: [facility] : [birth year] UNIT #: [id number] AGE: [address]: Leonel Fuller MD SEX: F ORDER DR: TD: 09/26/2016 11:25 JOB #: [id number] MEDICAL IMAGING REPORT Page 1 of 1 COPY
--- NOTE | ~2016-09-25 | EKG ---
PATIENT: SHERIDAN EISENBERG UNIT #: [id number] Ventricular Rate: 93 BPM Atrial Rate: 81 BPM QRS Duration: 126 ms Q-T Interval: 390 ms QTC Calculation(Bezet): 484 ms P [place]: 66 degrees Calculated R [place]: -81 degrees Calculated T [place]: 69 degrees Diagnosis Line: Ventricular-paced rhythm with frequent Premature Diagnosis Line: ventricular complexes Diagnosis Line: Biventricular pacemaker detected Diagnosis Line: Atrial fibrillation Diagnosis Line: When compared with ECG of 03/30/15 Diagnosis Line: Premature ventricular complexes are now Present Diagnosis Line: Confirmed by DHEERAJ FRANCE MD ([id number]) on 09/27/2016 Diagnosis Line: 6:24:50 PM INTERPRETING MD: EDILMA FARIAS
--- NOTE | ~2016-09-25 | CR6 ---
[facility] A Service of [facility] RADIOLOGY TEXT RESULTS PATIENT: SHERIDAN EISENBERG LOCATION: [facility] 569-01 : [birth year] UNIT #: [id number] AGE: [address]: Leonel Fuller MD SEX: F ORDER DR: [id number] [facility]. [place], [place] [address] [id number] MR#: [id number] Acc #: [id number] NAME: SHERIDAN EISENBERG : 1965 SEX: F STUDY DATE/TIME: 09/25/2016 21:49 UNIT: [facility] ROOM: [facility] STUDY DESCRIPTION: CR Abdomen Portable Sng View Attending Physician: Chuck Villanueva M.D. Ordering Physician: Izzy Crews M.D. Primary Care Physician: Primary Care Physician No MEDICAL IMAGING REPORT This report is preliminary unless electronic signature is present EXAM AP view of the abdomen COMPARISON AP view of the chest on the same date. INDICATION 51-year-old female with respiratory arrest requiring endotracheal intubation. NG tube placement today. FINDINGS NG tube side port terminates over the gastric fundus. There is gaseous distension of colon in the upper abdomen. Multilead pacemaker/defibrillator device is noted. As noted on radiograph of the chest performed on the same date, one of the pulse generator leads appears either kinked or possibly fractured. Correlation with device function is recommended. It is noted the patient has a CT chest ordered for today and this could be evaluated on that study. Endotracheal tube appears somewhat low-riding, terminating approximately 1.6 cm above the santino on this exam. IMPRESSION 1. Gastric suction side port terminates in the expected location of the gastric fundus. 2. Endotracheal tube appears low-riding approximately 1.6 cm above the santino. Consider retraction by approximately 1 cm. 3. Questionable focal kinking versus fracture of one of the leads of the cardiac pacemaker/defibrillator device. It is noted the patient has CT chest ordered for today and this could be further evaluated at that time. Correlation with device function is recommended. [facility] A Service of [facility] RADIOLOGY TEXT RESULTS PATIENT: SHERIDAN EISENBERG LOCATION: [facility] 569-01 : [birth year] UNIT #: [id number] AGE: [address]: Leonel Fuller MD SEX: F ORDER DR: Dictated by... Dov Benoit M.D. THIS IS AN ELECTRONICALLY VERIFIED REPORT Dov Benoit M.D. at 09/30/2016 7:51 PM DOMINIQUE/kira TD: 09/26/2016 01:54 JOB #: [id number] MEDICAL IMAGING REPORT Page 1 of 1 COPY
[~2016-09-25 21:15] MED LIST: AMITIZA24 MCG PO; ASPIR-TRIN325 MG PO; ASPIRIN EC81 M1 PO; ATORVASTATIN CA10 MG PO; BUMETANIDE2 M1 PO; BUMEX PO; CELEXA20 MG PO; COMBIVENT MININEB INH; DESYREL50 MG PO; DIAZEPAM PO; FERROUS GLUCON324 MG PO; GLUCOPHAGE500 M1 PO; HYDRALAZINE HCL25 MG PO; IMDUR-ER30 M3 PO; ISOSORBIDE MONO30 M1 PO; KCL PO; KLOR-CON 88 ME1 PO; KLOR-CON PO; LACTULOSE10 G/15 M1 PO; LIPITOR PO; LOSARTAN POTAS100 MG PO; MAXZIDE 75-501 EACH PO; METFORMIN HCL500 M1 PO; METOPROLOL SUCC25 MG PO; METOPROLOL TAR25 MG PO; MYCOSTATIN15 GM POW EXT; NICODERM C1 PATCH .4 TD; NITROSTAT0.4 MG SL; PEPCID40 MG PO; PERCOCET 10/3251 TAB PO; PRENATAL1 TA1 PO; PRILOSEC40 MG PO; SYNTHROID PO; SYNTHROID0.05 MG PO; TALWIN NX50 MG TAB PO; TRIAMTERENE-HC1 EACH PO; TRIAMTERENE/HCT1 TA3 PO; XARELTO15 MG PO; ZANTAC150 MG PO
[2016-09-25 21:41] LABS: POC - CKMB 1.6 ng/mL (0.0-7.9); POC - TROPONIN <0.05 ng/mL (<=0.05)
[2016-09-25 21:47] LABS: ARTERIAL BLD GAS O2 SATURATION 94.5 % (90.0-100.0); ARTERIAL BLOOD GAS CARBOXY HB 4.2 %sat (0.0-9.0); ARTERIAL BLOOD GAS HCO3 21.7 mmol/L; ARTERIAL BLOOD GAS PCO2 68.2 mmHg (35.0-45.0); ARTERIAL BLOOD GAS pH 7.112 (7.350-7.450)
[2016-09-25 21:48] LABS: ARTERIAL BLOOD GAS ALLEN TEST NORMAL; ARTERIAL BLOOD GAS ART SITE RIGHT RADIAL; ARTERIAL BLOOD GAS DELIVERY VENT; ARTERIAL BLOOD GAS VENT MODE AC; ARTERIAL DRAW? YES
[2016-09-25 21:57] LABS: BASOPHIL# 0.4 X10e3 (0-0.3); BASOPHIL% 1.3 % (0-2.5); DIFF IND YES; EOSINOPHIL# 0.2 X10e3 (0-0.7); EOSINOPHIL% 0.6 % (0.0-7.0); HEMOGLOBIN 16.3 gm/dL (12.0-16.0); LYMPHOCYTE# 5.6 X10e3 (1.0-3.5); LYMPHOCYTE% 18.5 % (17.0-45.0); MEAN CELL VOLUME 94.1 FL (83-96); MEAN CORPUSCULAR HEMOGLOBIN 29.6 PG (28-34); MEAN CORPUSCULAR HGB CONC 31.4 g/dL (30-36); MEAN PLATELET VOLUME 10.5 FL (6.5-11.5); MONOCYTE# 2.2 X10e3 (0-1.0); MONOCYTE% 7.3 % (3.0-12.0); NEUTROPHIL# 21.8 X10e3 (1.5-7.1); NEUTROPHIL% 72.3 % (40-75); PLATELET COUNT 161 X10e3 (140-420); RED BLOOD COUNT 5.52 X10e (3.90-5.30); RED CELL DISTRIBUTION WIDTH 15.6 % (11.0-15.5); WHITE BLOOD COUNT 30.1 X10e3 (4.0-10.5)
[2016-09-25 21:58] LABS: PARTIAL THROMBOPLASTIN TIME 25.2 SECONDS (23.5-31.3); PROTHROMBIN TIME (PATIENT) 10.4 SECONDS (9.6-11.5)
[2016-09-25 22:02] LABS: ALBUMIN SERUM 3.7 g/dL (3.5-5.0); ALKALINE PHOSPHATASE 116 U/L (32-92); ALT (SGPT) 73 U/L (10-40); AST (SGOT) 60 U/L (10-42); BILIRUBIN, DIRECT 0.1 mg/dL (0.0-0.2); BILIRUBIN,TOTAL 1.1 mg/dL (0.2-2.0); BLOOD UREA NITROGEN 16 mg/dL (9-23); BUN/CREATININE RATIO 14.54; CALCIUM SERUM 9.3 mg/dL (8.4-10.2); CARBON DIOXIDE 16 mmol/L (22-31); CHLORIDE 103 mmol/L (100-111); CPK (CREATINE PHOSPHOKINASE) 33 IU/L (26-140); CREATININE SERUM 1.1 mg/dL (0.6-1.4); GLOM FILT RATE Estimated 58.5 mL/min (>60); GLUCOSE FASTING 272 mg/dL (70-110); LIPASE 12 U/L (22-51); MAGNESIUM 2.3 mg/dL (1.6-3.0); POTASSIUM 3.8 mmol/L (3.5-5.1); PROTEIN TOTAL SERUM 7.1 g/dL (6.0-8.3); SODIUM 137 mmol/L (135-145)
[2016-09-25 22:06] LABS: ALCOHOL BLOOD <5 mg/dL ([, 0])
[2016-09-25] MEDS ORDERED: BAYER ASPIRIN325 M1 PO (22:24)
[2016-09-25] MEDS ORDERED: METOPROLOL TART25 MG PO (22:24)
[2016-09-25] MEDS ORDERED: ZANTAC150 M1 PO (22:24)
[2016-09-25] MEDS ORDERED: SYNTHROID0.05 MG PO (22:25)
[2016-09-25] MEDS ORDERED: BUMEX2 MG PO (22:25)
[2016-09-25] MEDS ORDERED: LACTULOSE10 GM/15 M PO (22:25)
[2016-09-25] MEDS ORDERED: COMBIVENT RESPIM4 GM INH (22:25)
[2016-09-25] MEDS ORDERED: OXYCODONE HCL30 MG PO (22:26)
[2016-09-25] MEDS ORDERED: CELEXA20 MG PO (22:26)
[2016-09-25] MEDS ORDERED: DESYREL50 MG PO (22:26)
[2016-09-25 22:50] LABS: ANISOCYTOSIS SL; PLATELET ESTIMATE DECREASED (NORMAL); SMUDGE CELLS 5 /100; VACUOLIZATION P
[2016-09-25 22:51] LABS: TOXIC GRANULATION SL
[2016-09-25 23:06] LABS: POC - CKMB 1.6 ng/mL (0.0-7.9); POC - TROPONIN <0.05 ng/mL (<=0.05)
[2016-09-25 23:38] LABS: ARTERIAL BLD GAS O2 SATURATION 92.2 % (90.0-100.0); ARTERIAL BLOOD GAS HCO3 25.8 mmol/L; ARTERIAL BLOOD GAS PCO2 63.1 mmHg (35.0-45.0); ARTERIAL BLOOD GAS PO2 91.4 mmHg (80.0-100); ARTERIAL BLOOD GAS pH 7.219 (7.350-7.450)
[2016-09-25 23:39] LABS: ARTERIAL BLOOD GAS ALLEN TEST NORMAL; ARTERIAL BLOOD GAS ART SITE RIGHT RADIAL; ARTERIAL BLOOD GAS CARBOXY HB 3.2 %sat (0.0-9.0); ARTERIAL BLOOD GAS DELIVERY VENT; ARTERIAL BLOOD GAS MET HB 0.7 %sat (0.0-2.0); ARTERIAL BLOOD GAS VENT MODE AC; ARTERIAL DRAW? YES
[2016-09-25 23:44] LABS: URINE SOURCE CLEAN CATCH
[2016-09-25 23:50] LABS: URINE APPEARANCE TURBID; URINE BLOOD 3+ (NEG); URINE COLOR DK YELLOW; URINE GLUCOSE 500 MG/DL (NEG); URINE KETONE TRACE (NEG); URINE LEUKOCYTE ESTERASE NEG (NEG); URINE NITRATE NEG (NEG); URINE PROTEIN 3+ (NEG); URINE SPECIFIC GRAVITY 1.041 (1.003-1.035)
[2016-09-25 23:53] LABS: CULTURE INDICATED? YES; URINE BACTERIA AUWI NEG (NEGATIVE); URINE SQUAMOUS EPITHELIAL CELL MANY /[HPF]; UWBCS1 AUWI INNUM (0-5)
[2016-09-26 00:09] LABS: AMPHETAMINE NEG (NEG); BARBITURATES NEG (NEG); BENZODIAZEPINES POS (NEG); COCAINE NEG (NEG); MARIJUANA NEG (NEG); OPIATES POS (NEG); TRICYCLIC ANTIDEPRESSANTS NEG (NEG); U METHADONE NEG (NEG)
[2016-09-26 00:11] LABS: URINE BILIRUBIN NEG (NEG)
[2016-09-26 03:43] LABS: BASOPHIL# 0.1 X10e3 (0-0.3); BASOPHIL% 0.5 % (0-2.5); EOSINOPHIL% 0.1 % (0.0-7.0); HEMATOCRIT 45.2 % (35.0-45.0); LYMPHOCYTE# 1.3 X10e3 (1.0-3.5); LYMPHOCYTE% 6.2 % (17.0-45.0); MEAN CORPUSCULAR HEMOGLOBIN 29.1 PG (28-34); MEAN PLATELET VOLUME 9.9 FL (6.5-11.5); MONOCYTE# 1.4 X10e3 (0-1.0); MONOCYTE% 6.5 % (3.0-12.0); NEUTROPHIL# 18.3 X10e3 (1.5-7.1); NEUTROPHIL% 86.7 % (40-75); PLATELET COUNT 119 X10e3 (140-420); RED BLOOD COUNT 4.96 X10e (3.90-5.30); RED CELL DISTRIBUTION WIDTH 15.2 % (11.0-15.5); WHITE BLOOD COUNT 21.1 X10e3 (4.0-10.5)
[2016-09-26 03:49] LABS: DIFF IND NO; HEMOGLOBIN 14.4 gm/dL (12.0-16.0); MEAN CELL VOLUME 91.1 FL (83-96)
[2016-09-26 04:21] LABS: ALBUMIN SERUM 2.9 g/dL (3.5-5.0); BILIRUBIN,TOTAL 1.9 mg/dL (0.2-2.0); CALCIUM SERUM 8.1 mg/dL (8.4-10.2); GLOM FILT RATE Estimated 65.7 mL/min (>60); POTASSIUM 3.3 mmol/L (3.5-5.1); PROTEIN TOTAL SERUM 5.6 g/dL (6.0-8.3)
[2016-09-26 05:14] LABS: ARTERIAL BLD GAS O2 SATURATION 99.4 % (90.0-100.0); ARTERIAL BLOOD GAS CARBOXY HB 1.9 %sat (0.0-9.0); ARTERIAL BLOOD GAS HCO3 29.4 mmol/L; ARTERIAL BLOOD GAS PCO2 47.8 mmHg (35.0-45.0); ARTERIAL BLOOD GAS pH 7.398 (7.350-7.450)
[2016-09-26 05:15] LABS: ARTERIAL BLOOD GAS ALLEN TEST NORMAL; ARTERIAL BLOOD GAS ART SITE LEFT RADIAL; ARTERIAL BLOOD GAS MET HB 0.7 %sat (0.0-2.0); ARTERIAL DRAW? YES
[2016-09-26 05:17] LABS: ARTERIAL BLOOD GAS DELIVERY VENT; ARTERIAL BLOOD GAS VENT MODE AC
[2016-09-26 09:05] LABS: CHOLESTEROL 128 mg/dL (0-200); HDL CHOLESTEROL 39 mg/dL (35-95); LDL CHOLESTEROL 66 mg/dL ([, -130]); LDL/HDL RATIO 2 RATIO (0-4); TRIGLYCERIDES 113 mg/dL (10-160)
[2016-09-26 11:03] LABS: CK TOTAL 39 IU/L (26-140)
[2016-09-26 15:44] LABS: CK TOTAL 30 IU/L (26-140)
[2016-09-27 05:08] LABS: BASOPHIL# 0.1 X10e3 (0-0.3); BASOPHIL% 0.4 % (0-2.5); EOSINOPHIL% 0.1 % (0.0-7.0); HEMATOCRIT 47.6 % (35.0-45.0); HEMOGLOBIN 15.3 gm/dL (12.0-16.0); LYMPHOCYTE% 5.5 % (17.0-45.0); MEAN CELL VOLUME 90.2 FL (83-96); MEAN CORPUSCULAR HEMOGLOBIN 29.1 PG (28-34); MEAN CORPUSCULAR HGB CONC 32.2 g/dL (30-36); MEAN PLATELET VOLUME 10.1 FL (6.5-11.5); MONOCYTE# 1.2 X10e3 (0-1.0); MONOCYTE% 6.4 % (3.0-12.0); NEUTROPHIL# 15.8 X10e3 (1.5-7.1); NEUTROPHIL% 87.6 % (40-75); PLATELET COUNT 124 X10e3 (140-420); RED BLOOD COUNT 5.28 X10e (3.90-5.30); RED CELL DISTRIBUTION WIDTH 14.8 % (11.0-15.5)
[2016-09-27 05:14] LABS: DIFF IND NO
[2016-09-27 06:04] LABS: ALBUMIN SERUM 3.1 g/dL (3.5-5.0); BILIRUBIN, DIRECT 0.4 mg/dL (0.0-0.2); BILIRUBIN,INDIRECT 0.7 mg/dL (0.0-0.9); BILIRUBIN,TOTAL 1.1 mg/dL (0.2-2.0); BUN/CREATININE RATIO 14.44; CALCIUM SERUM 8.5 mg/dL (8.4-10.2); CREATININE SERUM 0.9 mg/dL (0.6-1.4); GLOM FILT RATE Estimated 74.6 mL/min (>60); MAGNESIUM 1.6 mg/dL (1.6-3.0); PROTEIN TOTAL SERUM 5.9 g/dL (6.0-8.3)
[2016-09-27 06:06] LABS: POTASSIUM 2.6 mmol/L (3.5-5.1)
[2016-09-27 08:29] LABS: ARTERIAL BLD GAS O2 SATURATION 96.8 % (90.0-100.0); ARTERIAL BLOOD GAS ALLEN TEST NORMAL; ARTERIAL BLOOD GAS CARBOXY HB 0.6 %sat (0.0-9.0); ARTERIAL BLOOD GAS HCO3 32.9 mmol/L; ARTERIAL BLOOD GAS MET HB 0.6 %sat (0.0-2.0); ARTERIAL BLOOD GAS PCO2 41.2 mmHg (35.0-45.0); ARTERIAL BLOOD GAS PO2 79.8 mmHg (80.0-100); ARTERIAL DRAW? YES
[2016-09-27 08:30] LABS: ARTERIAL BLOOD GAS ART SITE RIGHT RADIAL; ARTERIAL BLOOD GAS DELIVERY VENT; ARTERIAL BLOOD GAS VENT MODE CPAP
[2016-09-28 06:45] LABS: BASOPHIL# 0.1 X10e3 (0-0.3); BASOPHIL% 0.8 % (0-2.5); EOSINOPHIL# 0.2 X10e3 (0-0.7); EOSINOPHIL% 1.1 % (0.0-7.0); HEMOGLOBIN 14.6 gm/dL (12.0-16.0); LYMPHOCYTE# 0.8 X10e3 (1.0-3.5); LYMPHOCYTE% 5.8 % (17.0-45.0); MEAN CELL VOLUME 89.9 FL (83-96); MEAN CORPUSCULAR HEMOGLOBIN 29.2 PG (28-34); MEAN CORPUSCULAR HGB CONC 32.5 g/dL (30-36); MEAN PLATELET VOLUME 9.8 FL (6.5-11.5); MONOCYTE# 0.7 X10e3 (0-1.0); MONOCYTE% 5.3 % (3.0-12.0); NEUTROPHIL# 11.7 X10e3 (1.5-7.1); PLATELET COUNT 121 X10e3 (140-420); RED BLOOD COUNT 5.01 X10e (3.90-5.30); RED CELL DISTRIBUTION WIDTH 15.1 % (11.0-15.5); WHITE BLOOD COUNT 13.4 X10e3 (4.0-10.5)
[2016-09-28 06:58] LABS: DIFF IND NO
[2016-09-28 10:30] LABS: BUN/CREATININE RATIO 24.28; CALCIUM SERUM 8.3 mg/dL (8.4-10.2); CREATININE SERUM 0.7 mg/dL (0.6-1.4); POTASSIUM 3.7 mmol/L (3.5-5.1)
[2016-09-29 06:37] LABS: BUN/CREATININE RATIO 15.38; CALCIUM SERUM 8.5 mg/dL (8.4-10.2); CREATININE SERUM 1.3 mg/dL (0.6-1.4); GLOM FILT RATE Estimated 47.8 mL/min (>60); POTASSIUM 3.5 mmol/L (3.5-5.1)
[2016-09-29] MEDS ORDERED: CEFTIN PO (10:41)
[2016-09-29] MEDS ORDERED: ENTRESTO 24 MG1 EACH PO (17:39)
[2016-09-29] MEDS ORDERED: CLOPIDOGREL75 MG PO (17:49)
[2016-09-29] MEDS ORDERED: K-DUR10 MEQ PO (17:50)
[2016-09-29] MEDS ORDERED: ALDACTONE PO (17:51)
== END 2016-09-29 19:03 | disposition home health service (06) | DRG 208 ==
LOC: CED 21:15 → C5C 23:30 → CEDOF 23:30 → CED 09-26 00:01 → CICCU2 09-26 01:52 → CEDOF 09-26 01:52 → CICCU2 09-26 07:33 → C5C 09-27 18:14
PROVIDERS: Emergency Medicine; Internal Medicine; Internal Medicine Cardiovascular Disease; Nurse Practitioner Family
PROC: 5A1945Z Respiratory Ventilation, 24-96 Consecutive Hours (ICD-10-PCS; 2016-09-25)
PROC: B32TYZZ Computerized Tomography (CT Scan) of Left Pulmonary Artery using Other Contrast (ICD-10-PCS; 2016-09-25)
PROC: B32SYZZ Computerized Tomography (CT Scan) of Right Pulmonary Artery using Other Contrast (ICD-10-PCS; 2016-09-25)
PROC: 0BH17EZ Insertion of Endotracheal Airway into Trachea, Via Natural or Artificial Opening (ICD-10-PCS; 2016-09-25)
PROC: 05HM33Z Insertion of Infusion Device into Right Internal Jugular Vein, Percutaneous Approach (ICD-10-PCS; principal; 2016-09-26)
PROC: B543ZZA Ultrasonography of Right Jugular Veins, Guidance (ICD-10-PCS; 2016-09-26)
PROC: B24BYZZ Ultrasonography of Heart with Aorta using Other Contrast (ICD-10-PCS; 2016-09-26)
DX: J96.01 Acute respiratory failure with hypoxia (principal); I50.23 Acute on chronic systolic (congestive) heart failure; J44.0 Chronic obstructive pulmonary disease with (acute) lower respiratory infection; K74.60 Unspecified cirrhosis of liver; E11.22 Type 2 diabetes mellitus with diabetic chronic kidney disease; I48.92 Unspecified atrial flutter; J98.11 Atelectasis; Z68.42 Body mass index [BMI] 45.0-49.9, adult; J44.1 Chronic obstructive pulmonary disease with (acute) exacerbation; I13.0 Hypertensive heart and chronic kidney disease with heart failure and stage 1 through stage 4 chronic kidney disease, or unspecified chronic kidney disease; I25.10 Atherosclerotic heart disease of native coronary artery without angina pectoris; Z95.810 Presence of automatic (implantable) cardiac defibrillator; G47.33 Obstructive sleep apnea (adult) (pediatric); E78.5 Hyperlipidemia, unspecified; I08.1 Rheumatic disorders of both mitral and tricuspid valves; G89.29 Other chronic pain; Z79.82 Long term (current) use of aspirin; Z88.2 Allergy status to sulfonamides; K59.00 Constipation, unspecified; E66.01 Morbid (severe) obesity due to excess calories; E87.6 Hypokalemia; N18.9 Chronic kidney disease, unspecified
CPT/HCPCS: 31500; 36600; 51702; 71010; 71020; 71275; 74000; 74177; 80048; 80053; 80061; 80076; 80202; 80307; 81003; 82550; 82553; 82803; 82947; 83036; 83605; 83690; 83735; 83880; 84100; 84132; 84443; 84484; 85025; 85610; 85730; 87040; 87045; 87070; 87086; 87205; 87427; 87899; 92610; 93005; 94002; 94003; 94010; 94640; 94760; 94761; 96372; 96374; 96375; 97110; 97116; 97163; 97165; 97530; 99291; C8929; C9113; G0238; G0480; J0360; J0696; J1650; J1815; J2543; J3010; J3370; J3475; Q9957; Q9967